=== PATIENT | female | born 1990 | race Caucasian/White ===

== ENCOUNTER 2020-10-25 20:10 | Observation (INO) ==
[2020-10-26 04:10] LABS: Basophils # 0.1 K/mcL (0.0-0.2); Basophils % 0.4 %; Eosinophils % 0.2 %; Hematocrit 44.8 % (35.3-44.9); Hemoglobin 15.2 g/dL (11.5-15.4); Immature Granulocytes % 0.5 % (0-4); Lymphocytes % 15.6 %; Mean Corpuscular HGB Conc 33.9 g/dL (31.6-35.5); Mean Corpuscular Hemoglobin 29.7 pg (28.0-33.3); Mean Corpuscular Volume 87.5 fL (83.0-100.0); Mean Platelet Volume 10.1 fL (9.4-12.4); Monocytes # 0.5 K/mcL (0.0-1.3); Monocytes % 4.1 %; Neutrophils # 10.4 K/mcL (1.6-8.9); Nucleated Red Blood Cells 0.2 /100 WBC (0); Platelet Count 236 K/mcL (140-400); Red Blood Count 5.12 M/mcL (3.82-4.97); Red Cell Distribution Width 12.5 % (11.5-14.5); Segmented Neutrophils % 79.2 %; White Blood Count 13.1 K/mcL (4.3-11.1)
[2020-10-26 04:15] LABS: Bilirubin,Urine Negative (Negative); Blood,Urine Trace (Negative); Clarity,Urine Turbid (Clear); Color,Urine Yellow (Yellow); Glucose,Urine (UA) Normal (Normal); Ketones,Urine 10 mg/dL (Negative); Leukocyte Esterase,Urine Moderate (Negative); Mucus,Urine Many per lpf (None-Few); Nitrite,Urine Negative (Negative); Protein,Urine 50 mg/dL (Neg-Trace); Specific Gravity,Urine > 1.030 (1.010-1.025); Squamous Epithelial Cell,Urine Few per hpf (None-Few)
[2020-10-26 04:25] LABS: Alanine Aminotransferase 67 Units/L (7-52); Albumin 4.8 g/dL (3.5-5.7); Albumin/Globulin Ratio 1.6 (1.1-2.2); Alkaline Phosphatase 62 Units/L (34-104); Amylase 38 Units/L (29-103); Aspartate Amino Transferase 27 Units/L (13-39); BUN/Creatinine Ratio 13 (6-26); Bilirubin,Direct 0.1 mg/dL (0.0-0.2); Bilirubin,Indirect 0.6 mg/dL (0.0-1.0); Bilirubin,Total 0.7 mg/dL (0.3-1.0); Blood Urea Nitrogen 10 mg/dL (6-20); Calcium 9.9 mg/dL (8.6-10.3); Carbon Dioxide 26 mEq/L (23-29); Chloride 102 mEq/L (98-107); Glucose 104 mg/dL (70-105); Lipase 5 Units/L (11-82); Osmolality,Calculated 285 (280-300); Potassium 3.9 mEq/L (3.5-5.1); Sodium 138 mEq/L (136-145); Total Protein 7.8 g/dL (6.4-8.9); eGFR For African Americans > 60 (> 60); eGFR For Non-African Americans > 60 (> 60)
[2020-10-26] MEDS ORDERED: Ondansetron 4 MG/2 ML VIAL ONE ×2 (05:43→14:20)
[2020-10-26] MEDS ORDERED: Ondansetron 4 MG/2 ML VIAL IVP ONE ×2 (05:45→10:35)
[2020-10-26] MEDS ORDERED: Isovue-370 500 ML BOTTLE IVP ONE (06:37)
[2020-10-26] MEDS ORDERED: 0.9 % Sodium Chloride 1,000 ML IVC ONE (10:35)
[2020-10-26] MEDS ORDERED: *HR* FentaNYL (PF) 100 MCG/2 ML VIAL IVP ONE (10:35)
[2020-10-26] MEDS ORDERED: Ondansetron 4 MG/2 ML VIAL IVP PRN ×2 (11:45→16:33)
[2020-10-26] MEDS ORDERED: *HR* HYDROcodone/Acet 5/325 mg TABLET PO PRN ×2 (11:45→16:33)
[2020-10-26] MEDS ORDERED: Lidocaine HCL 4 ML Topical Solution (Laryng-O-Jet Kit Sterile Pak) TP ONE (14:15)
[2020-10-26] MEDS ORDERED: *HR* Midazolam HCl 2 MG/2 ML VIAL ONE (14:19)
[2020-10-26] MEDS ORDERED: *HR* FentaNYL (PF) 100 MCG/2 ML VIAL ONE (14:20)
[2020-10-26] MEDS ORDERED: Lidocaine -MPF 2% 2 ML VIAL ONE (14:20)
[2020-10-26] MEDS ORDERED: *HR* Propofol 200 MG/20 ML VIAL IVP ONE (14:20)
[2020-10-26] MEDS ORDERED: *HR* Succinylcholine 200 MG/10 ML VIAL IVP ONE (14:20)
[2020-10-26] MEDS ORDERED: *HR* Rocuronium Bromide 50 MG/5 ML VIAL ONE (14:20)
[2020-10-26] MEDS ORDERED: Acetaminophen IV 1,000 MG/100 ML BAG IVPB ONE (14:28)
[2020-10-26] MEDS ORDERED: *HR* HYDROmorphone PF 0.5 MG/0.5 ML SYRINGE IVP PRN ×2 (14:38→16:33)
[2020-10-26] MEDS ORDERED: *HR* FentaNYL (PF) 100 MCG/2 ML VIAL IVP PRN ×2 (14:38→16:33)
[2020-10-26] MEDS ORDERED: Ketorolac 30 MG/ML VIAL ONE (16:01)
[2020-10-26 16:14] VITALS: TEMP 97.6
[2020-10-26 17:24] VITALS: O2SAT 98
[2020-10-26 18:10] VITALS: BP 96/61; PULSE 56
== END 2020-10-26 18:32 | disposition home or self-care (01) ==
LOC: 3BNU 20:10 → EMEROOARM 20:10 → 3BNU 10-26 13:46
PROVIDERS: ADMIT Surgery; ATTEND Surgery